=== PATIENT | female | born 1940 | race Two or more races ===

== ENCOUNTER 2019-06-27 06:31 | Inpatient (IN) | payer MEDICARE, OTHER ==
[~2019-06-27] VITALS: Ht 167.6 cm; Wt 74.1 kg
[2019-06-27] MEDS ORDERED: FOLI1TAB85 PO (07:04)
[2019-06-27] MEDS ORDERED: SEVE800T17 PO (07:04)
[2019-06-27] MEDS ORDERED: FAMO20 PO (07:04)
[2019-06-27] MEDS ORDERED: HYDR-2924 PO (07:04)
[2019-06-27] MEDS ORDERED: SITA25 PO (07:04)
[2019-06-27] MEDS ORDERED: ALBU2TAB42 PO (07:04)
[2019-06-27] MEDS ORDERED: LACT10SO62 PO (07:04)
[2019-06-27] MEDS ORDERED: INSLAN SQ (07:04)
[2019-06-27] MEDS ORDERED: PARO10TA89 PO (07:04)
[2019-06-27] MEDS ORDERED: NIFE90TA49 PO (07:04)
[2019-06-27] MEDS ORDERED: [UNRECOGNIZED DRUG - OTHER] PO (07:04)
[2019-06-27] MEDS ORDERED: DOCU-275 PO (07:04)
[2019-06-27] MEDS ORDERED: GLUC1VIA6 IM (07:04)
[2019-06-27] MEDS ORDERED: LINA290C PO (07:04)
[2019-06-27 07:28] LABS: HEMATOCRIT 38.6 % (36-46); HEMOGLOBIN 12.4 g/dL (12.0-16.0); MEAN CORPUSCULAR HEMOGLOBIN 29.2 pg (26.0-34.0); MEAN CORPUSCULAR HGB CONC 32.1 G/dL (31.0-37.0); MEAN CORPUSCULAR VOLUME 91 fL (80-100); PLATELET COUNT (AUTO) 241 K/uL (150-450); RED BLOOD CELL COUNT(AUTO) 4.23 MIL/uL (4.00-5.20); RED CELL DISTRIBUTION WIDTH 16.3 % (11.5-14.5)
[2019-06-27 07:33] LABS: GLUCOSE,POINT OF CARE 121 MG/DL (70-110)
[2019-06-27 07:36] LABS: INR 1.1 (0.9-1.1); PROTHROMBIN TIME 11.5 SEC (9.4-11.6)
[2019-06-27 07:36] LABS: BAND NEUTROPHILS % (MANUAL) 0 % (0-5)
[2019-06-27 07:37] LABS: LACTIC ACID 1.1 mmol/L (0.4-2.0)
[2019-06-27 07:40] LABS: BASOPHILS % (MANUAL) 1 % (0-2); LYMPHOCYTES % (MANUAL) 11 % (22-44); MONOCYTES % (MANUAL) 2 % (2-9); SEGMENTED NEUTROPHILS % 86 % (40-70)
[2019-06-27] MEDS ORDERED: VANCOMYCIN HCL 1 GM/D5% WATER 200 ML IV ONE (07:45)
[2019-06-27] MEDS ORDERED: PIPERACILLIN/TAZO 3.375 GM/D5W 50 ML IV ONE (07:45)
[2019-06-27 08:14] LABS: ALBUMIN 3.3 g/dL (3.4-5.0); BILIRUBIN,TOTAL 0.5 mg/dL (0.1-1.0); CREATININE 10.2 mg/dL (0.60-1.30); MAGNESIUM 2.4 mg/dL (1.80-2.40); THYROID STIMULATING HORMONE 3.36 uIU/mL (0.36-3.74); TOTAL PROTEIN, SERUM 6.8 g/dL (6.4-8.2)
[2019-06-27] MEDS ORDERED: SODIUM CHLORIDE 0.9% 2,200 ML IV ONE (08:15)
[2019-06-27 08:23] LABS: APPEARANCE,URINE CLEAR (CLEAR); BILIRUBIN,URINE NEGATIVE (NEGATIVE); GLUCOSE, URINE (UA) 100 mg/dL (NEGATIVE); KETONES,URINE NEGATIVE (NEGATIVE); LEUKOCYTE ESTERASE ,URINE NEGATIVE (NEGATIVE); NITRATE,URINE NEGATIVE (NEGATIVE); OCCULT BLOOD,URINE TRACE (NEGATIVE); PH,URINE 7.5 (5.0-8.0); PROTEIN,URINE SEE CONFIRM (NEGATIVE); UROBILINOGEN,URINE 0.2 mg/dL (<=1.0)
[2019-06-27 08:37] LABS: BACTERIA,URINE None Seen /HPF (None Seen); SQUAMOUS EPITHELIAL CELL,UR Rare /LPF (None Seen); SULFOSALICYLIC ACID,URINE 4+ (Negative)
[2019-06-27 08:38] LABS: GLUCOSE,POINT OF CARE 95 MG/DL (70-110)
[2019-06-27 09:25] LABS: INFLUENZA TYPE A NEGATIVE FOR TYPE A (NEGATIVE); INFLUENZA TYPE B NEGATIVE FOR TYPE B (NEGATIVE)
[2019-06-27] MEDS ORDERED: LORazepam 2 MG/ML VIAL IVP ONE (09:45)
[2019-06-27] MEDS ORDERED: DEXTROSE 5%-0.9% SODIUM CHL 1,000 ML IV ONE (11:00)
[2019-06-27] MEDS ORDERED: DEXTROSE 50%-WATER 25 GM/50 ML SYRINGE IVP ONE ×4 (11:00→21:00)
[2019-06-27 11:02] LABS: GLUCOSE,POINT OF CARE 40 MG/DL (70-110)
[2019-06-27] MEDS ORDERED: ALBU2.5V2 NEB (11:09)
[2019-06-27 11:25] LABS: GLUCOSE,POINT OF CARE 270 MG/DL (70-110)
[2019-06-27] MEDS ORDERED: ACETAMINOPHEN 325 MG TABLET PO PRN (11:30)
[2019-06-27] MEDS ORDERED: ONDANSETRON HCL 4 MG/2 ML VIAL IVP PRN (11:30)
[2019-06-27] MEDS ORDERED: 0.9% SODIUM CHLORIDE 10 ML SYRINGE IVP PRN (11:30)
[2019-06-27] MEDS ORDERED: SODIUM CHLORIDE 154 MEQ in DEXTROSE 10%-WATER 1,000 ML IV ONE (11:47)
[2019-06-27 12:30] LABS: GLUCOSE,POINT OF CARE 207 MG/DL (70-110)
[2019-06-27 13:39] LABS: GLUCOSE,POINT OF CARE 143 MG/DL (70-110)
[2019-06-27 14:29] VITALS: BP 180/92
[2019-06-27 15:03] VITALS: BP 198/95
[2019-06-27] MEDS: NIFEdipine 90 MG ER TABLET PO SCH ×2 (15:26→21:00)
[2019-06-27] MEDS: HydrALAZINE HCL 50 MG TABLET PO SCH ×2 (15:27→21:00)
[2019-06-27] MEDS ORDERED: SODIUM CHLORIDE 0.9% 1,000 ML ONE (15:59)
[2019-06-27 18:00] VITALS: BP 237/80
[2019-06-27 18:45] VITALS: BP 181/83
[2019-06-27 19:32] VITALS: BP 133/93
[2019-06-27 19:38] LABS: GLUCOMETER DEV NAME(LOC) 5S.1; GLUCOSE,POINT OF CARE 65 MG/DL (70-110)
[2019-06-27] MEDS ORDERED: VANCOMYCIN HCL 1 GM/D5% WATER 200 ML IV SCH (20:00)
[2019-06-27] MEDS ORDERED: PIPERACILLIN/TAZO 3.375 GM/D5W 50 ML IV SCH (20:00)
[2019-06-27] MEDS ORDERED: PIPERACILLIN SODIUM/TAZOBACTAM 0.75 GM in DEXTROSE 5%-WATER 50 ML IV PRN (20:15)
[2019-06-27] MEDS ORDERED: VANCOMYCIN HCL 1 GM/D5% WATER 200 ML IV PRN (20:15)
[2019-06-27] MEDS: PIPERACILLIN SODIUM/TAZOBACTAM 2.25 GM in DEXTROSE 5%-WATER 50 ML IV SCH (21:44)
[2019-06-27] MEDS ORDERED: DiphenhydrAMINE HCL 50 MG/ML VIAL ONE (22:25)
[2019-06-28 00:16] VITALS: BP 159/92
[2019-06-28] MEDS ORDERED: NALOXONE PO PRN (03:00)
[2019-06-28] MEDS ORDERED: PENTAZOCINE HCL PO PRN (03:00)
[2019-06-28] MEDS ORDERED: PENTAZOCINE PO PRN (03:00)
[2019-06-28] MEDS ORDERED: NALOXONE HCL PO PRN (03:00)
[2019-06-28 04:19] VITALS: BP 154/68
[2019-06-28] MEDS ORDERED: DEXTROSE 50%-WATER 25 GM/50 ML SYRINGE IVP ONE (06:15)
[2019-06-28] MEDS: PIPERACILLIN SODIUM/TAZOBACTAM 2.25 GM in DEXTROSE 5%-WATER 50 ML IV SCH ×3 (06:26→21:49)
[2019-06-28] MEDS: LINACLOTIDE 145 MCG CAPSULE PO SCH (06:30)
[2019-06-28 07:01] LABS: GLUCOMETER DEV NAME(LOC) 5N.2; GLUCOSE,POINT OF CARE 190 MG/DL (70-110)
[2019-06-28 07:01] LABS: GLUCOMETER DEV NAME(LOC) 5N.2; GLUCOSE,POINT OF CARE 44 MG/DL (70-110)
[2019-06-28 07:01] LABS: GLUCOMETER DEV NAME(LOC) 5N.2; GLUCOSE,POINT OF CARE 56 MG/DL (70-110)
[2019-06-28 07:01] LABS: GLUCOMETER DEV NAME(LOC) 5N.2; GLUCOSE,POINT OF CARE 161 MG/DL (70-110)
[2019-06-28 07:01] LABS: GLUCOMETER DEV NAME(LOC) 5N.2; GLUCOSE,POINT OF CARE 44 MG/DL (70-110)
[2019-06-28] MEDS: SEVELAMER CARBONATE 800 MG TABLET PO SCH ×3 (08:00→17:59)
[2019-06-28 08:10] VITALS: BP 194/98
[2019-06-28 08:44] LABS: HEMATOCRIT 37.5 % (36-46); HEMOGLOBIN 11.6 g/dL (12.0-16.0); MEAN CORPUSCULAR HEMOGLOBIN 28.6 pg (26.0-34.0); MEAN CORPUSCULAR VOLUME 92 fL (80-100); PLATELET COUNT (AUTO) 208 K/uL (150-450); RED BLOOD CELL COUNT(AUTO) 4.06 MIL/uL (4.00-5.20); RED CELL DISTRIBUTION WIDTH 16.6 % (11.5-14.5)
[2019-06-28 08:45] LABS: BAND NEUTROPHILS % (MANUAL) 0 % (0-5); EOSINOPHILS % (MANUAL) 2 % (1-6); LYMPHOCYTES % (MANUAL) 10 % (22-44); MONOCYTES % (MANUAL) 6 % (2-9); SEGMENTED NEUTROPHILS % 82 % (40-70)
[2019-06-28] MEDS ORDERED: DEXTROSE 50%-WATER 25 GM/50 ML SYRINGE IVP PRN (08:45)
[2019-06-28] MEDS: NIFEdipine 90 MG ER TABLET PO SCH ×2 (09:00→21:00)
[2019-06-28] MEDS: DOCUSATE SODIUM 100 MG CAPSULE PO SCH (09:00)
[2019-06-28] MEDS: HydrALAZINE HCL 50 MG TABLET PO SCH ×3 (09:00→21:00)
[2019-06-28] MEDS: LACTULOSE 20 GM/30 ML SOLUTION UDCUP PO SCH (09:00)
[2019-06-28] MEDS: VITAMIN B COMP/VIT C/FOLIC ACID CAPSULE PO SCH (09:00)
[2019-06-28] MEDS: FAMOTIDINE 20 MG TABLET PO SCH (09:00)
[2019-06-28 09:08] LABS: ALBUMIN 2.8 g/dL (3.4-5.0); BILIRUBIN,TOTAL 0.6 mg/dL (0.1-1.0); CALCIUM, TOTAL 7.8 mg/dL (8.8-10.5); CREATININE 5.74 mg/dL (0.60-1.30); MAGNESIUM 1.8 mg/dL (1.80-2.40); POTASSIUM 4.1 mmol/L (3.5-5.1); TOTAL PROTEIN, SERUM 6.4 g/dL (6.4-8.2)
[2019-06-28] MEDS: LORazepam 2 MG/ML VIAL IVP PRN ×2 (11:29→18:05)
[2019-06-28 11:38] VITALS: BP 159/79
[2019-06-28] MEDS: DEXTROSE 10%-WATER 1,000 ML IV SCH (16:22)
[2019-06-28 17:37] LABS: GLUCOMETER DEV NAME(LOC) 5S.2A; GLUCOSE,POINT OF CARE 110 MG/DL (70-110)
[2019-06-28 20:12] VITALS: BP 173/122
[2019-06-28] MEDS: HydrALAZINE HCL 20 MG/ML VIAL IVP PRN (20:21)
[2019-06-28] MEDS: PARoxetine HCL 10 MG TABLET PO SCH ×2 (21:00→21:51)
[2019-06-28 22:05] VITALS: BP 107/71
[2019-06-29] VITALS (7 sets, daily range): BP systolic 128–185; BP diastolic 59–113
[2019-06-29] MEDS: LORazepam 2 MG/ML VIAL IVP PRN ×3 (00:06→09:16)
[2019-06-29] MEDS: HydrALAZINE HCL 20 MG/ML VIAL IVP PRN (05:05)
[2019-06-29] MEDS: PIPERACILLIN SODIUM/TAZOBACTAM 2.25 GM in DEXTROSE 5%-WATER 50 ML IV SCH ×3 (05:05→20:53)
[2019-06-29] MEDS: LINACLOTIDE 145 MCG CAPSULE PO SCH (06:30)
[2019-06-29 07:01] LABS: BASOPHILS % (AUTO) 2.2 % (0.0-2.0); EOSINOPHILS % (AUTO) 2.1 % (1.0-6.0); HEMATOCRIT 36.8 % (36-46); HEMOGLOBIN 11.7 g/dL (12.0-16.0); LYMPHOCYTES # (AUTO) 1.9 K/uL (1.0-4.8); LYMPHOCYTES % (AUTO) 9.1 % (22.0-44.0); MEAN CORPUSCULAR HEMOGLOBIN 29.4 pg (26.0-34.0); MEAN CORPUSCULAR HGB CONC 31.9 G/dL (31.0-37.0); MEAN CORPUSCULAR VOLUME 92 fL (80-100); MONOCYTES # (AUTO) 1.9 K/uL (0.1-1.0); MONOCYTES % (AUTO) 9.6 % (2.0-9.0); NEUTROPHILS # (AUTO) 15.6 K/uL (1.8-7.7); PLATELET COUNT (AUTO) 210 K/uL (150-450); RED BLOOD CELL COUNT(AUTO) 3.99 MIL/uL (4.00-5.20); RED CELL DISTRIBUTION WIDTH 16.7 % (11.5-14.5)
[2019-06-29 07:05] LABS: CALCIUM, TOTAL 7.4 mg/dL (8.8-10.5); CREATININE 6.8 mg/dL (0.60-1.30); MAGNESIUM 1.6 mg/dL (1.80-2.40); PHOSPHORUS 4.2 mg/dL (2.5-4.9); POTASSIUM 3.4 mmol/L (3.5-5.1); VANCOMYCIN,RANDOM 13.5 mcg/mL (25.0-50.0)
[2019-06-29] MEDS: SEVELAMER CARBONATE 800 MG TABLET PO SCH ×3 (08:00→17:52)
[2019-06-29 08:21] LABS: GLUCOMETER DEV NAME(LOC) 5N.2; GLUCOSE,POINT OF CARE 148 MG/DL (70-110)
[2019-06-29 09:00] LABS: GLUCOMETER DEV NAME(LOC) 5S.1; GLUCOSE,POINT OF CARE 120 MG/DL (70-110)
[2019-06-29] MEDS: FAMOTIDINE 20 MG TABLET PO SCH (09:00)
[2019-06-29] MEDS: LACTULOSE 20 GM/30 ML SOLUTION UDCUP PO SCH (09:00)
[2019-06-29] MEDS: VITAMIN B COMP/VIT C/FOLIC ACID CAPSULE PO SCH (09:00)
[2019-06-29] MEDS: DOCUSATE SODIUM 100 MG CAPSULE PO SCH (09:00)
[2019-06-29] MEDS: HydrALAZINE HCL 50 MG TABLET PO SCH ×3 (09:00→21:00)
[2019-06-29] MEDS: NIFEdipine 90 MG ER TABLET PO SCH ×2 (09:00→21:00)
[2019-06-29 09:01] LABS: GLUCOMETER DEV NAME(LOC) 5N.1; GLUCOSE,POINT OF CARE 169 MG/DL (70-110)
[2019-06-29 12:06] LABS: GLUCOMETER DEV NAME(LOC) 5S.2A; GLUCOSE,POINT OF CARE 98 MG/DL (70-110)
[2019-06-29] MEDS: DEXTROSE 10%-WATER 1,000 ML IV SCH (13:38)
[2019-06-29] MEDS ORDERED: MAGNESIUM SULFATE 2 GM/WATER 50 ML IV ONE (13:45)
[2019-06-29] MEDS ORDERED: ACETAMINOPHEN 650 MG/20.3 ML SOLUTION UDCUP PO PRN (14:15)
[2019-06-29] MEDS ORDERED: VANCOMYCIN HCL 1 GM/D5% WATER 200 ML IV ONE (16:00)
[2019-06-29 19:58] LABS: GLUCOMETER DEV NAME(LOC) 5N.2; GLUCOSE,POINT OF CARE 171 MG/DL (70-110)
[2019-06-29] MEDS: PARoxetine HCL 10 MG TABLET PO SCH (21:00)
[2019-06-29 22:14] LABS: GLUCOMETER DEV NAME(LOC) 5S.2A; GLUCOSE,POINT OF CARE 149 MG/DL (70-110)
[2019-06-30] MEDS: DEXTROSE 10%-WATER 1,000 ML IV SCH ×2 (01:23→20:49)
[2019-06-30] MEDS: PIPERACILLIN SODIUM/TAZOBACTAM 2.25 GM in DEXTROSE 5%-WATER 50 ML IV SCH ×3 (05:21→20:49)
[2019-06-30] MEDS: LINACLOTIDE 145 MCG CAPSULE PO SCH (06:07)
[2019-06-30 06:26] VITALS: BP 142/66
[2019-06-30] MEDS: SEVELAMER CARBONATE 800 MG TABLET PO SCH ×3 (08:00→18:00)
[2019-06-30] MEDS: FAMOTIDINE 20 MG TABLET PO SCH (09:00)
[2019-06-30] MEDS: HydrALAZINE HCL 50 MG TABLET PO SCH ×4 (09:00→21:00)
[2019-06-30] MEDS: NIFEdipine 90 MG ER TABLET PO SCH ×3 (09:00→21:00)
[2019-06-30] MEDS: VITAMIN B COMP/VIT C/FOLIC ACID CAPSULE PO SCH (09:00)
[2019-06-30] MEDS: LACTULOSE 20 GM/30 ML SOLUTION UDCUP PO SCH (09:00)
[2019-06-30] MEDS: DOCUSATE SODIUM 100 MG CAPSULE PO SCH (09:00)
[2019-06-30 16:11] LABS: CALCIUM, TOTAL 7.7 mg/dL (8.8-10.5); CREATININE 5.35 mg/dL (0.60-1.30); PHOSPHORUS 3.8 mg/dL (2.5-4.9); POTASSIUM 3.8 mmol/L (3.5-5.1)
[2019-06-30 17:27] LABS: GLUCOMETER DEV NAME(LOC) 5S.2A; GLUCOSE,POINT OF CARE 150 MG/DL (70-110)
[2019-06-30 20:01] VITALS: BP 151/79
[2019-06-30] MEDS: PARoxetine HCL 10 MG TABLET PO SCH ×2 (20:49→21:00)
[2019-06-30] MEDS: RisperiDONE 0.5 MG TABLET PO SCH ×2 (21:00→23:16)
[2019-06-30] MEDS: LORazepam 2 MG/ML VIAL IVP PRN (23:29)
[2019-07-01] MEDS: HydrALAZINE HCL 20 MG/ML VIAL IVP PRN (01:59)
[2019-07-01 04:01] LABS: GLUCOMETER DEV NAME(LOC) 5N.1; GLUCOSE,POINT OF CARE 198 MG/DL (70-110)
[2019-07-01 05:11] VITALS: BP 153/78
[2019-07-01] MEDS: PIPERACILLIN SODIUM/TAZOBACTAM 2.25 GM in DEXTROSE 5%-WATER 50 ML IV SCH ×3 (05:19→21:17)
[2019-07-01] MEDS: LINACLOTIDE 145 MCG CAPSULE PO SCH (05:40)
[2019-07-01 05:44] LABS: GLUCOMETER DEV NAME(LOC) 5N.2; GLUCOSE,POINT OF CARE 178 MG/DL (70-110)
[2019-07-01 05:44] LABS: GLUCOMETER DEV NAME(LOC) 5N.2; GLUCOSE,POINT OF CARE 170 MG/DL (70-110)
[2019-07-01 05:44] LABS: GLUCOMETER DEV NAME(LOC) 5N.2; GLUCOSE,POINT OF CARE 141 MG/DL (70-110)
[2019-07-01] MEDS: LORazepam 2 MG/ML VIAL IVP PRN ×3 (06:10→21:31)
[2019-07-01 07:53] LABS: BASOPHILS % (AUTO) 1.8 % (0.0-2.0); EOSINOPHILS % (AUTO) 2.7 % (1.0-6.0); HEMATOCRIT 32.3 % (36-46); HEMOGLOBIN 10.3 g/dL (12.0-16.0); LYMPHOCYTES # (AUTO) 1.8 K/uL (1.0-4.8); LYMPHOCYTES % (AUTO) 9.4 % (22.0-44.0); MEAN CORPUSCULAR HEMOGLOBIN 29.3 pg (26.0-34.0); MEAN CORPUSCULAR HGB CONC 31.8 G/dL (31.0-37.0); MEAN CORPUSCULAR VOLUME 92 fL (80-100); MONOCYTES # (AUTO) 1.5 K/uL (0.1-1.0); MONOCYTES % (AUTO) 8.1 % (2.0-9.0); NEUTROPHILS # (AUTO) 14.8 K/uL (1.8-7.7); PLATELET COUNT (AUTO) 178 K/uL (150-450); RED BLOOD CELL COUNT(AUTO) 3.51 MIL/uL (4.00-5.20); RED CELL DISTRIBUTION WIDTH 16.4 % (11.5-14.5)
[2019-07-01 07:59] VITALS: BP 140/68
[2019-07-01] MEDS: SEVELAMER CARBONATE 800 MG TABLET PO SCH ×3 (08:00→17:22)
[2019-07-01 08:12] LABS: ALBUMIN 2.6 g/dL (3.4-5.0); BILIRUBIN,TOTAL 0.6 mg/dL (0.1-1.0); CALCIUM, TOTAL 6.9 mg/dL (8.8-10.5); CREATININE 5.87 mg/dL (0.60-1.30); TOTAL PROTEIN, SERUM 6.4 g/dL (6.4-8.2)
[2019-07-01 08:30] LABS: POTASSIUM 2.8 mmol/L (3.5-5.1)
[2019-07-01] MEDS: VITAMIN B COMP/VIT C/FOLIC ACID CAPSULE PO SCH (09:00)
[2019-07-01] MEDS: LACTULOSE 20 GM/30 ML SOLUTION UDCUP PO SCH (09:00)
[2019-07-01] MEDS: NIFEdipine 90 MG ER TABLET PO SCH ×2 (09:00→21:00)
[2019-07-01] MEDS: HydrALAZINE HCL 50 MG TABLET PO SCH ×3 (09:00→21:18)
[2019-07-01] MEDS: RisperiDONE 0.5 MG TABLET PO SCH ×2 (09:00→21:38)
[2019-07-01] MEDS: FAMOTIDINE 20 MG TABLET PO SCH (09:00)
[2019-07-01] MEDS: -HEMODIALYSIS NOTE- MISC SCH (09:23)
[2019-07-01 11:47] VITALS: BP 117/84
[2019-07-01] MEDS: DEXTROSE 10%-WATER 1,000 ML IV SCH (12:09)
[2019-07-01 14:13] LABS: GLUCOMETER DEV NAME(LOC) 5N.2; GLUCOSE,POINT OF CARE 167 MG/DL (70-110)
[2019-07-01 14:13] LABS: GLUCOMETER DEV NAME(LOC) 5N.2; GLUCOSE,POINT OF CARE 165 MG/DL (70-110)
[2019-07-01] MEDS ORDERED: VANCOMYCIN HCL 1 GM/D5% WATER 200 ML IV ONE (16:00)
[2019-07-01] MEDS ORDERED: DiphenhydrAMINE HCL 50 MG/ML VIAL IM ONE (16:57)
[2019-07-01 18:52] VITALS: BP 114/61
[2019-07-01 20:36] VITALS: BP 164/87
[2019-07-01] MEDS: PARoxetine HCL 10 MG TABLET PO SCH (21:18)
[2019-07-02 00:04] VITALS: BP 114/51
[2019-07-02 01:13] LABS: GLUCOMETER DEV NAME(LOC) 5N.1; GLUCOSE,POINT OF CARE 110 MG/DL (70-110)
[2019-07-02 01:13] LABS: GLUCOMETER DEV NAME(LOC) 5N.2; GLUCOSE,POINT OF CARE 197 MG/DL (70-110)
[2019-07-02 04:45] VITALS: BP 149/68
[2019-07-02] MEDS: PIPERACILLIN SODIUM/TAZOBACTAM 2.25 GM in DEXTROSE 5%-WATER 50 ML IV SCH ×3 (05:44→21:20)
[2019-07-02] MEDS: LORazepam 2 MG/ML VIAL IVP PRN ×3 (05:44→15:58)
[2019-07-02] MEDS: LINACLOTIDE 145 MCG CAPSULE PO SCH (06:30)
[2019-07-02] MEDS: SEVELAMER CARBONATE 800 MG TABLET PO SCH ×4 (08:00→18:00)
[2019-07-02] MEDS: HydrALAZINE HCL 50 MG TABLET PO SCH ×4 (09:00→21:00)
[2019-07-02] MEDS: VITAMIN B COMP/VIT C/FOLIC ACID CAPSULE PO SCH ×2 (09:00→09:37)
[2019-07-02] MEDS: RisperiDONE 0.5 MG TABLET PO SCH ×3 (09:00→21:00)
[2019-07-02] MEDS: NIFEdipine 90 MG ER TABLET PO SCH ×3 (09:00→21:00)
[2019-07-02] MEDS: LACTULOSE 20 GM/30 ML SOLUTION UDCUP PO SCH ×2 (09:00→09:37)
[2019-07-02] MEDS: -HEMODIALYSIS NOTE- MISC SCH (09:00)
[2019-07-02] MEDS: FAMOTIDINE 20 MG TABLET PO SCH ×2 (09:00→09:37)
[2019-07-02 09:24] VITALS: BP 169/68
[2019-07-02] MEDS: HydrALAZINE HCL 20 MG/ML VIAL IVP PRN ×2 (09:36→21:18)
[2019-07-02 10:21] LABS: GLUCOMETER DEV NAME(LOC) 5N.1; GLUCOSE,POINT OF CARE 172 MG/DL (70-110)
[2019-07-02 10:21] LABS: GLUCOMETER DEV NAME(LOC) 5N.1; GLUCOSE,POINT OF CARE 177 MG/DL (70-110)
[2019-07-02 12:21] LABS: EOSINOPHILS % (AUTO) 3.2 % (1.0-6.0); HEMOGLOBIN 11.2 g/dL (12.0-16.0); LYMPHOCYTES # (AUTO) 1.5 K/uL (1.0-4.8); LYMPHOCYTES % (AUTO) 5.9 % (22.0-44.0); MEAN CORPUSCULAR HEMOGLOBIN 29.3 pg (26.0-34.0); MEAN CORPUSCULAR HGB CONC 32.1 G/dL (31.0-37.0); MEAN CORPUSCULAR VOLUME 91 fL (80-100); MONOCYTES # (AUTO) 1.9 K/uL (0.1-1.0); MONOCYTES % (AUTO) 7.4 % (2.0-9.0); NEUTROPHILS # (AUTO) 21.3 K/uL (1.8-7.7); NEUTROPHILS % (AUTO) 81.5 % (40.0-70.0); PLATELET COUNT (AUTO) 199 K/uL (150-450); RED BLOOD CELL COUNT(AUTO) 3.83 MIL/uL (4.00-5.20)
[2019-07-02 12:49] LABS: ALBUMIN 2.5 g/dL (3.4-5.0); BILIRUBIN,TOTAL 0.6 mg/dL (0.1-1.0); CALCIUM, TOTAL 7.9 mg/dL (8.8-10.5); CREATININE 6.19 mg/dL (0.60-1.30); MAGNESIUM 1.8 mg/dL (1.80-2.40); PHOSPHORUS 3.7 mg/dL (2.5-4.9); VANCOMYCIN,RANDOM 30.8 mcg/mL (25.0-50.0)
[2019-07-02 12:51] LABS: POTASSIUM 2.9 mmol/L (3.5-5.1)
[2019-07-02] MEDS ORDERED: POTASSIUM CHL 10 MEQ/WATER 50 ML IV SCH (14:00)
[2019-07-02] MEDS ORDERED: POTASSIUM CHLORIDE 10% 40 MEQ/30 ML LIQUID UDCUP PO ONE (15:45)
[2019-07-02 16:52] LABS: GLUCOMETER DEV NAME(LOC) 5N.2; GLUCOSE,POINT OF CARE 159 MG/DL (70-110)
[2019-07-02 17:32] LABS: GLUCOMETER DEV NAME(LOC) 5N.2; GLUCOSE,POINT OF CARE 166 MG/DL (70-110)
[2019-07-02 17:46] VITALS: BP 152/59
[2019-07-02] MEDS ORDERED: POTASSIUM CHLORIDE 20 MEQ ER TABLET PO PRN (18:45)
[2019-07-02] MEDS: PARoxetine HCL 10 MG TABLET PO SCH (21:00)
[2019-07-02] MEDS: POTASSIUM CHL 10 MEQ/WATER 50 ML IV PRN (21:18)
[2019-07-02] MEDS: DEXTROSE 10%-WATER 1,000 ML IV SCH (21:20)
[2019-07-02 22:30] VITALS: BP 166/56
[2019-07-03] MEDS: POTASSIUM CHL 10 MEQ/WATER 50 ML IV PRN (01:11)
[2019-07-03] MEDS: PIPERACILLIN SODIUM/TAZOBACTAM 2.25 GM in DEXTROSE 5%-WATER 50 ML IV SCH (05:10)
[2019-07-03 05:32] VITALS: BP 110/65
[2019-07-03] MEDS: LINACLOTIDE 145 MCG CAPSULE PO SCH (06:30)
[2019-07-03 07:48] VITALS: BP 132/66
[2019-07-03] MEDS: SEVELAMER CARBONATE 800 MG TABLET PO SCH ×4 (08:00→18:00)
[2019-07-03] MEDS: RisperiDONE 0.5 MG TABLET PO SCH ×3 (08:37→20:45)
[2019-07-03] MEDS: NIFEdipine 90 MG ER TABLET PO SCH ×3 (08:37→20:45)
[2019-07-03] MEDS: VITAMIN B COMP/VIT C/FOLIC ACID CAPSULE PO SCH ×2 (08:37→09:00)
[2019-07-03] MEDS: LACTULOSE 20 GM/30 ML SOLUTION UDCUP PO SCH ×2 (08:37→09:00)
[2019-07-03] MEDS: FAMOTIDINE 20 MG TABLET PO SCH ×2 (08:37→09:00)
[2019-07-03] MEDS: HydrALAZINE HCL 50 MG TABLET PO SCH ×4 (08:37→20:44)
[2019-07-03 08:45] LABS: VANCOMYCIN,RANDOM 29.8 mcg/mL (25.0-50.0)
[2019-07-03] MEDS: -HEMODIALYSIS NOTE- MISC SCH (09:00)
[2019-07-03 11:05] VITALS: BP 142/74
[2019-07-03 12:34] LABS: GLUCOMETER DEV NAME(LOC) 5N.1; GLUCOSE,POINT OF CARE 158 MG/DL (70-110)
[2019-07-03 12:34] LABS: GLUCOMETER DEV NAME(LOC) 5N.1; GLUCOSE,POINT OF CARE 136 MG/DL (70-110)
[2019-07-03 12:34] LABS: GLUCOMETER DEV NAME(LOC) 5N.1; GLUCOSE,POINT OF CARE 136 MG/DL (70-110)
[2019-07-03 13:37] LABS: GLUCOMETER DEV NAME(LOC) 5N.2; GLUCOSE,POINT OF CARE 184 MG/DL (70-110)
[2019-07-03 13:37] LABS: GLUCOMETER DEV NAME(LOC) 5N.2; GLUCOSE,POINT OF CARE 157 MG/DL (70-110)
[2019-07-03] MEDS: MetroNIDAZOLE 500 MG/NACL 100 ML IV SCH ×2 (13:51→20:43)
[2019-07-03] MEDS: LORazepam 2 MG/ML VIAL IVP PRN (15:22)
[2019-07-03 15:31] VITALS: BP 188/68
[2019-07-03] MEDS: HydrALAZINE HCL 20 MG/ML VIAL IVP PRN ×2 (15:33→20:58)
[2019-07-03 15:37] LABS: ALBUMIN 2.6 g/dL (3.4-5.0); BILIRUBIN,TOTAL 0.6 mg/dL (0.1-1.0); CREATININE 7.46 mg/dL (0.60-1.30); POTASSIUM 3.6 mmol/L (3.5-5.1); TOTAL PROTEIN, SERUM 6.2 g/dL (6.4-8.2)
[2019-07-03 15:44] LABS: CALCIUM, TOTAL 7.8 mg/dL (8.8-10.5)
[2019-07-03] MEDS: PARoxetine HCL 10 MG TABLET PO SCH (20:45)
[2019-07-03] MEDS: DEXTROSE 10%-WATER 1,000 ML IV SCH (20:57)
[2019-07-03 21:05] VITALS: BP 184/69
[2019-07-03 23:00] VITALS: BP 158/130
[2019-07-04] MEDS: MetroNIDAZOLE 500 MG/NACL 100 ML IV SCH ×3 (03:45→20:31)
[2019-07-04 04:25] VITALS: BP 189/104
[2019-07-04] MEDS: HydrALAZINE HCL 20 MG/ML VIAL IVP PRN ×2 (04:52→15:58)
[2019-07-04 04:58] LABS: GLUCOMETER DEV NAME(LOC) 5N.2; GLUCOSE,POINT OF CARE 174 MG/DL (70-110)
[2019-07-04 04:58] LABS: GLUCOMETER DEV NAME(LOC) 5N.2; GLUCOSE,POINT OF CARE 148 MG/DL (70-110)
[2019-07-04 05:30] VITALS: BP 100/51
[2019-07-04] MEDS: LINACLOTIDE 145 MCG CAPSULE PO SCH (06:30)
[2019-07-04 07:24] VITALS: BP 132/78
[2019-07-04 07:26] LABS: BASOPHILS % (AUTO) 1.5 % (0.0-2.0); EOSINOPHILS % (AUTO) 2.4 % (1.0-6.0); HEMATOCRIT 32.2 % (36-46); HEMOGLOBIN 10.3 g/dL (12.0-16.0); LYMPHOCYTES # (AUTO) 1.7 K/uL (1.0-4.8); MEAN CORPUSCULAR HEMOGLOBIN 29.3 pg (26.0-34.0); MEAN CORPUSCULAR VOLUME 92 fL (80-100); MONOCYTES # (AUTO) 1.8 K/uL (0.1-1.0); MONOCYTES % (AUTO) 7.6 % (2.0-9.0); NEUTROPHILS # (AUTO) 19.6 K/uL (1.8-7.7); NEUTROPHILS % (AUTO) 81.5 % (40.0-70.0); PLATELET COUNT (AUTO) 211 K/uL (150-450); RED BLOOD CELL COUNT(AUTO) 3.52 MIL/uL (4.00-5.20); RED CELL DISTRIBUTION WIDTH 16.4 % (11.5-14.5)
[2019-07-04 07:51] LABS: ALBUMIN 2.6 g/dL (3.4-5.0); BILIRUBIN,TOTAL 0.6 mg/dL (0.1-1.0); CALCIUM, TOTAL 7.3 mg/dL (8.8-10.5); CREATININE 7.9 mg/dL (0.60-1.30); POTASSIUM 3.5 mmol/L (3.5-5.1); TOTAL PROTEIN, SERUM 6.4 g/dL (6.4-8.2)
[2019-07-04] MEDS ORDERED: SODIUM CHLORIDE 0.9% 1,000 ML ONE (07:52)
[2019-07-04] MEDS: SEVELAMER CARBONATE 800 MG TABLET PO SCH ×3 (08:00→18:00)
[2019-07-04] MEDS: LACTULOSE 20 GM/30 ML SOLUTION UDCUP PO SCH (08:57)
[2019-07-04] MEDS: RisperiDONE 0.5 MG TABLET PO SCH ×2 (08:57→20:31)
[2019-07-04] MEDS: FAMOTIDINE 20 MG TABLET PO SCH (08:57)
[2019-07-04] MEDS: VITAMIN B COMP/VIT C/FOLIC ACID CAPSULE PO SCH (08:57)
[2019-07-04] MEDS: NIFEdipine 90 MG ER TABLET PO SCH ×2 (08:57→20:31)
[2019-07-04] MEDS: HydrALAZINE HCL 50 MG TABLET PO SCH ×3 (08:57→20:31)
[2019-07-04 09:32] LABS: GLUCOMETER DEV NAME(LOC) 5N.1; GLUCOSE,POINT OF CARE 157 MG/DL (70-110)
[2019-07-04 11:20] VITALS: BP 148/58
[2019-07-04 15:24] VITALS: BP 187/83
[2019-07-04] MEDS ORDERED: INDIUM IN-111 OXYQUINOLINE/.5MCL ISOTOPE 1 EA INJ INJ ONE (16:25)
[2019-07-04] MEDS: DEXTROSE 10%-WATER 1,000 ML IV SCH (17:25)
[2019-07-04] MEDS: LORazepam 2 MG/ML VIAL IVP PRN (18:12)
[2019-07-04 18:27] LABS: GLUCOMETER DEV NAME(LOC) 5S.2A; GLUCOSE,POINT OF CARE 175 MG/DL (70-110)
[2019-07-04 19:39] VITALS: BP 147/98
[2019-07-04] MEDS: PARoxetine HCL 10 MG TABLET PO SCH (20:31)
[2019-07-05] MEDS: LORazepam 2 MG/ML VIAL IVP PRN (02:29)
[2019-07-05 04:01] VITALS: BP 146/98
[2019-07-05] MEDS: MetroNIDAZOLE 500 MG/NACL 100 ML IV SCH ×3 (05:38→20:17)
[2019-07-05] MEDS: LINACLOTIDE 145 MCG CAPSULE PO SCH (05:38)
[2019-07-05 06:26] LABS: EOSINOPHILS % (AUTO) 2.4 % (1.0-6.0); HEMATOCRIT 34.1 % (36-46); HEMOGLOBIN 11.1 g/dL (12.0-16.0); LYMPHOCYTES # (AUTO) 2.1 K/uL (1.0-4.8); MEAN CORPUSCULAR HEMOGLOBIN 29.9 pg (26.0-34.0); MEAN CORPUSCULAR HGB CONC 32.6 G/dL (31.0-37.0); MEAN CORPUSCULAR VOLUME 92 fL (80-100); MONOCYTES # (AUTO) 2.1 K/uL (0.1-1.0); MONOCYTES % (AUTO) 9.1 % (2.0-9.0); NEUTROPHILS # (AUTO) 17.9 K/uL (1.8-7.7); NEUTROPHILS % (AUTO) 77.5 % (40.0-70.0); PLATELET COUNT (AUTO) 218 K/uL (150-450); RED BLOOD CELL COUNT(AUTO) 3.72 MIL/uL (4.00-5.20); RED CELL DISTRIBUTION WIDTH 16.2 % (11.5-14.5)
[2019-07-05 06:53] LABS: GLUCOMETER DEV NAME(LOC) 5N.2; GLUCOSE,POINT OF CARE 150 MG/DL (70-110)
[2019-07-05 06:53] LABS: GLUCOMETER DEV NAME(LOC) 5N.2; GLUCOSE,POINT OF CARE 150 MG/DL (70-110)
[2019-07-05 06:54] LABS: ALBUMIN 2.6 g/dL (3.4-5.0); BILIRUBIN,TOTAL 0.6 mg/dL (0.1-1.0); CALCIUM, TOTAL 8.2 mg/dL (8.8-10.5); CREATININE 5.78 mg/dL (0.60-1.30); TOTAL PROTEIN, SERUM 6.6 g/dL (6.4-8.2); VANCOMYCIN,RANDOM 23.4 mcg/mL (25.0-50.0)
[2019-07-05 07:25] LABS: POTASSIUM 2.9 mmol/L (3.5-5.1)
[2019-07-05] MEDS ORDERED: POTASSIUM CHL 10 MEQ/WATER 50 ML IV ONE (07:45)
[2019-07-05 07:46] VITALS: BP 142/88
[2019-07-05] MEDS: SEVELAMER CARBONATE 800 MG TABLET PO SCH ×3 (08:00→18:00)
[2019-07-05] MEDS ORDERED: SODIUM CHLORIDE 0.9% 100 ML ONE (09:12)
[2019-07-05] MEDS: FAMOTIDINE 20 MG TABLET PO SCH (10:33)
[2019-07-05] MEDS: VITAMIN B COMP/VIT C/FOLIC ACID CAPSULE PO SCH (10:34)
[2019-07-05] MEDS: HydrALAZINE HCL 50 MG TABLET PO SCH ×3 (10:34→20:17)
[2019-07-05] MEDS: NIFEdipine 90 MG ER TABLET PO SCH ×3 (10:34→20:31)
[2019-07-05] MEDS: RisperiDONE 0.5 MG TABLET PO SCH ×2 (10:34→20:17)
[2019-07-05 10:49] VITALS: BP 124/98
[2019-07-05 14:21] LABS: GLUCOMETER DEV NAME(LOC) 5N.2; GLUCOSE,POINT OF CARE 212 MG/DL (70-110)
[2019-07-05] MEDS: POTASSIUM CHL 10 MEQ/WATER 50 ML IV SCH ×2 (14:31→16:22)
[2019-07-05 15:42] VITALS: BP 169/64
[2019-07-05 20:13] VITALS: BP 130/47
[2019-07-05] MEDS: PARoxetine HCL 10 MG TABLET PO SCH ×2 (20:17→20:31)
[2019-07-05 23:10] VITALS: BP 106/48
[2019-07-05] MEDS: POTASSIUM CHL 10 MEQ/WATER 50 ML IV PRN (23:27)
[2019-07-06] MEDS: LORazepam 2 MG/ML VIAL IVP PRN ×2 (00:58→09:15)
[2019-07-06] MEDS: POTASSIUM CHL 10 MEQ/WATER 50 ML IV PRN ×2 (01:12→03:17)
[2019-07-06 02:25] LABS: GLUCOMETER DEV NAME(LOC) 5N.2; GLUCOSE,POINT OF CARE 218 MG/DL (70-110)
[2019-07-06 02:26] LABS: GLUCOMETER DEV NAME(LOC) 5N.2; GLUCOSE,POINT OF CARE 231 MG/DL (70-110)
[2019-07-06 03:31] VITALS: BP 149/88
[2019-07-06] MEDS: MetroNIDAZOLE 500 MG/NACL 100 ML IV SCH ×3 (05:36→20:27)
[2019-07-06] MEDS: LINACLOTIDE 145 MCG CAPSULE PO SCH (05:37)
[2019-07-06 07:40] VITALS: BP 150/56
[2019-07-06] MEDS: SEVELAMER CARBONATE 800 MG TABLET PO SCH ×3 (08:00→17:39)
[2019-07-06 08:17] LABS: BASOPHILS % (AUTO) 1.8 % (0.0-2.0); EOSINOPHILS % (AUTO) 1.9 % (1.0-6.0); HEMATOCRIT 31.7 % (36-46); HEMOGLOBIN 10.1 g/dL (12.0-16.0); LYMPHOCYTES # (AUTO) 1.5 K/uL (1.0-4.8); MEAN CORPUSCULAR HEMOGLOBIN 29.4 pg (26.0-34.0); MEAN CORPUSCULAR VOLUME 92 fL (80-100); MONOCYTES # (AUTO) 1.7 K/uL (0.1-1.0); MONOCYTES % (AUTO) 7.8 % (2.0-9.0); NEUTROPHILS % (AUTO) 81.5 % (40.0-70.0); PLATELET COUNT (AUTO) 216 K/uL (150-450); RED BLOOD CELL COUNT(AUTO) 3.45 MIL/uL (4.00-5.20); RED CELL DISTRIBUTION WIDTH 16.3 % (11.5-14.5)
[2019-07-06] MEDS: RisperiDONE 0.5 MG TABLET PO SCH ×2 (08:21→20:27)
[2019-07-06] MEDS: VITAMIN B COMP/VIT C/FOLIC ACID CAPSULE PO SCH (08:21)
[2019-07-06] MEDS: HydrALAZINE HCL 50 MG TABLET PO SCH ×3 (08:24→20:27)
[2019-07-06] MEDS: NIFEdipine 90 MG ER TABLET PO SCH ×2 (08:24→20:27)
[2019-07-06] MEDS: FAMOTIDINE 20 MG TABLET PO SCH (08:24)
[2019-07-06] MEDS ORDERED: SODIUM CHLORIDE 0.9% 1,000 ML ONE (08:42)
[2019-07-06 08:44] LABS: CALCIUM, TOTAL 8.2 mg/dL (8.8-10.5); CREATININE 6.73 mg/dL (0.60-1.30); MAGNESIUM 1.8 mg/dL (1.80-2.40); PHOSPHORUS 3.5 mg/dL (2.5-4.9); POTASSIUM 3.5 mmol/L (3.5-5.1)
[2019-07-06 11:59] LABS: GLUCOMETER DEV NAME(LOC) 5N.2; GLUCOSE,POINT OF CARE 181 MG/DL (70-110)
[2019-07-06 14:32] LABS: C.DIFF GDH ANTIGEN, Stool Negative (Negative); C.DIFF TOXINS A&B, Stool Negative (Negative)
[2019-07-06 16:00] VITALS: BP 163/65
[2019-07-06 19:23] VITALS: BP 148/71
[2019-07-06] MEDS: PARoxetine HCL 10 MG TABLET PO SCH (20:27)
[2019-07-06 21:09] LABS: GLUCOMETER DEV NAME(LOC) 5S.2A; GLUCOSE,POINT OF CARE 113 MG/DL (70-110)
[2019-07-06 21:09] LABS: GLUCOMETER DEV NAME(LOC) 5S.2A; GLUCOSE,POINT OF CARE 123 MG/DL (70-110)
[2019-07-06 23:18] VITALS: BP 142/69
[2019-07-07 01:01] LABS: GLUCOMETER DEV NAME(LOC) 5N.2; GLUCOSE,POINT OF CARE 212 MG/DL (70-110)
[2019-07-07] MEDS: MetroNIDAZOLE 500 MG/NACL 100 ML IV SCH ×2 (03:36→11:56)
[2019-07-07 04:56] VITALS: BP 155/62
[2019-07-07] MEDS: LINACLOTIDE 145 MCG CAPSULE PO SCH (06:13)
[2019-07-07 06:53] LABS: BASOPHILS % (AUTO) 0.6 % (0.0-2.0); EOSINOPHILS % (AUTO) 1.8 % (1.0-6.0); HEMATOCRIT 33.5 % (36-46); HEMOGLOBIN 10.7 g/dL (12.0-16.0); LYMPHOCYTES # (AUTO) 1.6 K/uL (1.0-4.8); LYMPHOCYTES % (AUTO) 7.4 % (22.0-44.0); MEAN CORPUSCULAR HEMOGLOBIN 29.2 pg (26.0-34.0); MEAN CORPUSCULAR HGB CONC 31.9 G/dL (31.0-37.0); MEAN CORPUSCULAR VOLUME 92 fL (80-100); MONOCYTES # (AUTO) 1.7 K/uL (0.1-1.0); MONOCYTES % (AUTO) 7.8 % (2.0-9.0); NEUTROPHILS # (AUTO) 18.3 K/uL (1.8-7.7); NEUTROPHILS % (AUTO) 82.4 % (40.0-70.0); PLATELET COUNT (AUTO) 251 K/uL (150-450); RED BLOOD CELL COUNT(AUTO) 3.66 MIL/uL (4.00-5.20); RED CELL DISTRIBUTION WIDTH 16.6 % (11.5-14.5)
[2019-07-07 06:59] LABS: GLUCOMETER DEV NAME(LOC) 5N.2; GLUCOSE,POINT OF CARE 181 MG/DL (70-110)
[2019-07-07 08:07] VITALS: BP 155/62
[2019-07-07] MEDS: SEVELAMER CARBONATE 800 MG TABLET PO SCH ×2 (08:48→11:56)
[2019-07-07] MEDS: FAMOTIDINE 20 MG TABLET PO SCH (08:48)
[2019-07-07] MEDS: RisperiDONE 0.5 MG TABLET PO SCH (08:48)
[2019-07-07] MEDS: VITAMIN B COMP/VIT C/FOLIC ACID CAPSULE PO SCH (08:48)
[2019-07-07] MEDS: NIFEdipine 90 MG ER TABLET PO SCH (08:48)
[2019-07-07] MEDS: HydrALAZINE HCL 50 MG TABLET PO SCH ×2 (08:48→16:09)
[2019-07-07 11:54] VITALS: BP 124/82
[2019-07-07] MEDS ORDERED: VANCOMYCIN HCL 750 MG in DEXTROSE 5%-WATER 250 ML IV ONE (14:00)
[2019-07-07] MEDS ORDERED: RISP.5 PO (14:37)
[2019-07-07] MEDS ORDERED: METR500 IV (14:40)
[2019-07-07] MEDS ORDERED: ACET-3207 PO (14:42)
[2019-07-07 16:14] VITALS: BP 158/62
== END 2019-07-07 16:20 | disposition home or self-care (01) | DRG 871 ==
LOC: EMS 06:31 → 5S 13:22
PROVIDERS: ADMIT Internal Medicine; ATTEND Internal Medicine
DX: A41.9 Sepsis, unspecified organism (principal); J18.9 Pneumonia, unspecified organism; N18.6 End stage renal disease; I12.0 Hypertensive chronic kidney disease with stage 5 chronic kidney disease or end stage renal disease; G93.40 Encephalopathy, unspecified; E87.1 Hypo-osmolality and hyponatremia; E11.649 Type 2 diabetes mellitus with hypoglycemia without coma; Z79.4 Long term (current) use of insulin; Z99.2 Dependence on renal dialysis; D72.829 Elevated white blood cell count, unspecified; E87.6 Hypokalemia; F29 Unspecified psychosis not due to a substance or known physiological condition; E11.22 Type 2 diabetes mellitus with diabetic chronic kidney disease; E78.00 Pure hypercholesterolemia, unspecified
CPT/HCPCS: 36245; 36569; 70450; 71250; 72192; 74150; 76937; 78806; 82948; 83605; 83735; 84100; 84132; 84145; 84443; 87040; 87081; 87324; 87340; 87449; 87804; 90935; 92526; 92610; 93005; 96365; A9547; J0360; J1200; J2060; J2543; J3370; J3475; J3480; J3490; J7030; J7042; J7050; J7060; J7131